=== PATIENT | male | born 1950 | race Caucasian/White ===

== ENCOUNTER → 2017-01-31 | Outpatient (CLI) | payer MEDICARE ==
[~2017-01-31] MED LIST: GLUCOPHAGE1000 MG PO; HYDROCHLOROTHIA25 MG PO; LIPITOR10 MG PO; NORCO 325-10 MG1 TAB PO; PRILOSEC20 MG PO; SYMBICORT 160-4.6 GM INH; VASOTEC10 MG PO
== END | disposition short-term general hospital (02) ==
LOC: CLPULM 08:24
DX: J84.10 Pulmonary fibrosis, unspecified (principal); R07.9 Chest pain, unspecified; J42 Unspecified chronic bronchitis; R06.83 Snoring; E66.9 Obesity, unspecified; I10 Essential (primary) hypertension; K21.9 Gastro-esophageal reflux disease without esophagitis; E11.9 Type 2 diabetes mellitus without complications; F41.9 Anxiety disorder, unspecified; D64.9 Anemia, unspecified; M25.50 Pain in unspecified joint; C44.90 Unspecified malignant neoplasm of skin, unspecified; F10.21 Alcohol dependence, in remission; Z82.5 Family history of asthma and other chronic lower respiratory diseases; Z86.59 Personal history of other mental and behavioral disorders